=== PATIENT | male | born 1945 | race Two or more races ===

== ENCOUNTER 2019-04-02 00:37 | Emergency (ER) | payer OTHER ==
[~2019-04-02] VITALS: Ht 180.3 cm; Wt 90.7 kg
[2019-04-02] MEDS ORDERED: NAMENDA10 MG (01:03)
[2019-04-02] MEDS ORDERED: REMINYL8 MG (01:03)
[2019-04-02] MEDS ORDERED: IRBESARTAN300 MG (01:03)
[2019-04-02] MEDS ORDERED: TAMS0.4C (01:04)
[2019-04-02] MEDS ORDERED: FINASTERIDE5 MG (01:04)
[2019-04-02] MEDS ORDERED: CEFUROXIME500 MG (01:04)
== END 2019-04-02 04:15 | disposition home or self-care (01) ==
LOC: ER 00:37
DX: R33.8 Other retention of urine (principal)

== ENCOUNTER 2019-04-12 19:04 | Emergency (ER) | payer OTHER ==
[~2019-04-12] VITALS: Ht 180.3 cm; Wt 88.5 kg
[~2019-04-12 19:04] MED LIST: CEFUROXIME500 MG; FINASTERIDE5 MG; IRBESARTAN300 MG; NAMENDA10 MG; REMINYL8 MG; TAMS0.4C
== END 2019-04-12 21:00 | disposition home or self-care (01) ==
LOC: ER 19:04
DX: R33.8 Other retention of urine (principal)